=== PATIENT | female | born 1980 | race Caucasian/White ===

== ENCOUNTER → 2018-03-20 10:45 | Outpatient (REF) | payer MEDICAID, SELFPAY ==
--- NOTE | 2018-03-20 09:50 | PAPFT_PTH ---
PATIENT: Mallory Lazaro LOC: LAN U#:[id number] AGE/SX: 45/F ROOM: RE03/20/[address]: Joshua Alcantara RN : 1980 BED: DIS: SPEC #: [id number] RECD: 03/20/18 12:56 STATUS: NISHA RUIZ #: [id number] FAVIAN: 03/20/18 09:[address]: Joshua Alcantara DEPT: [facility] Cytology RECD BY: Anel Zepeda ENTERED: 03/20/18 12:56 SP TYPE: PAPFT OTHR DR: Monica Mcclellan MD, DC Tissues: 1 - CX/ENDOCX FOR PAP SMEARS Procedures: PAP THIN PREP/[facility] Screening HPV DNA PROBE Comments: [id number]
== END ==
LOC: LBN 10:45
PROVIDERS: PCP Family Medicine; Visit Provider Advanced Practice Midwife
DX: Z12.4 Encounter for screening for malignant neoplasm of cervix (principal); Z11.51 Encounter for screening for human papillomavirus (HPV)
CPT/HCPCS: 88142; 87624

== ENCOUNTER 2020-06-29 16:36 | Outpatient (REF) | payer BC, SELFPAY ==
[2020-07-10 11:28] LABS: Patient Race White; SARS-CoV-2 RNA Undetected (Undetected); SARS-CoV-2 Specimen Source Nasal
[2020-07-10 11:37] LABS: Method Summary See Comments
== END 2020-06-29 16:56 ==
LOC: LBN 16:36
PROVIDERS: PCP Family Medicine; Visit Provider Nurse Practitioner
DX: R11.0 Nausea (principal); R53.83 Other fatigue; R19.7 Diarrhea, unspecified; J02.9 Acute pharyngitis, unspecified
CPT/HCPCS: U0003

== ENCOUNTER 2023-06-04 03:56 | Outpatient (CLI) | payer MEDICAID, SELFPAY ==
[2023-06-04 09:02] LABS: HCT 39.6 % (36.0-46.0); HGB 13.6 g/dL (11.2-15.7); MCH 29.2 pg (27.0-33.0); MCHC 34.3 % (32.0-36.0); MCV 85 fL (80-95); MPV 8.8 fL (8.0-11.0); Platelet Count 432 10^3/uL (130-400); RBC 4.65 10^6/uL (3.93-5.22); RDW 11.5 % (11.7-14.6); RDW-SD 35.3 fL
[2023-06-04 10:06] LABS: ALT 27 U/L (14-59); AST 18 U/L (15-37); Albumin 3.9 g/dL (3.4-5.0); Alkaline Phosphatase 55 U/L (46-116); Anion Gap 7.5 mmol/L (3-11); BUN 9 mg/dL (7-18); Bilirubin, Total 0.4 mg/dL (0.2-1.0); CO2 26.5 mmol/L (21.0-32.0); CREATININE 0.7 mg/dL (0.55-1.02); Calcium 8.9 mg/dL (8.5-10.1); Calculated LDL 108 mg/dL (<100); Chloride 104 mmol/L (98-107); Cholesterol 173 mg/dL (<200); Estimated GFR 110.67 (mL/min/1.73m2); Glucose 102 mg/dL (74-106); HDL Cholesterol 51 mg/dL (40-60); Potassium 4.2 mmol/L (3.5-5.1); Sodium 138 mmol/L (136-145); Total Protein 7.3 g/dL (6.4-8.2); Triglyceride 70 mg/dL (<150)
== END 2023-06-04 03:57 | disposition home or self-care (01) ==
PROVIDERS: PCP Nurse Practitioner Family; Visit Provider Nurse Practitioner Family
DX: F32.A Depression, unspecified (principal); F41.9 Anxiety disorder, unspecified; Z00.00 Encounter for general adult medical examination without abnormal findings
CPT/HCPCS: 36415; 80053; 80061; 85027; 84443

== ENCOUNTER → 2023-10-07 02:01 | Outpatient (CLI) | payer MEDICAID, SELFPAY ==
--- NOTE | 2023-10-07 07:30 | DI.RAD_ITS ---
Exam(s) XR SHOULDER RT COMPLETE 2+V EXAM: XR SHOULDER RT COMPLETE 2+V CLINICAL HISTORY: right shoulder pain,m25.511. TECHNIQUE: 2D digital imaging was performed. COMPARISON: CR XR SHOULDER LT COMPLETE 2+V from 10/07/2023 FINDINGS: Five views. No evidence of fracture or dislocation or abnormal soft tissue calcifications. No degenerative noble es. Subacromial space exhibits normal height. There are 2 peripherally sclerotic small cystic findi ngs in the lateral half of the humeral head which are probably degenerative subarticular cysts. Ther e is no obvious degenerative change in the glenohumeral and AC joints. Bone density otherwise normal . IMPRESSION: Two small peripherally sclerotic cysts in the humeral head. DATA REPOSITORY: RADIATION DOSE DELIVERED:
--- NOTE | 2023-10-07 16:25 | DI.RAD_ITS ---
Exam(s) XR SHOULDER LT COMPLETE 2+V EXAM: XR SHOULDER LT COMPLETE 2+V h CLINICAL HISTORY: left shoulder pain,m25.512. TECHNIQUE: 2D digital imaging was performed. COMPARISON: No exams were available for comparison FINDINGS: Four views. No evidence of fracture or dislocation. Subacromial space unremarkable. No soft tissue calcificatio ns. No significant degenerative changes. AC joint appears unremarkable. Bone density normal. No o sseous lesions. IMPRESSION: No significant radiographic findings in the left shoulder. DATA REPOSITORY: RADIATION DOSE DELIVERED:
== END ==
PROVIDERS: PCP Nurse Practitioner Family; Visit Provider Nurse Practitioner Family
DX: M25.512 Pain in left shoulder (principal); M25.511 Pain in right shoulder
CPT/HCPCS: 73030

== ENCOUNTER 2024-03-01 16:13 | Outpatient (REF) | payer BC, SELFPAY ==
--- NOTE | 2024-03-01 15:40 | PAPFT_PTH ---
PATIENT: Mallory Lazaro LOC: LAN U#:[id number] AGE/SX: 43/F ROOM: RE03/01/[address]: Bety Harris NP : 1980 BED: DIS: 03/01/2024 SPEC #: [id number] RECD: 03/01/24 18:35 STATUS: NISHA SARA #: [id number] FAVIAN: 03/01/24 15:[address]: Bety Harris NP DEPT: [facility] Cytology RECD BY: Anel Zepeda ENTERED: 03/01/24 18:36 SP TYPE: PAPFT OTHR DR: Casie Martinez NP Tissues: 1 - CX/ENDOCX FOR PAP SMEARS Procedures: PAP THIN PREP/U[facility] Screening HPV DNA PROBE Comments: [id number] (HPV 16 & 18/45)
== END 2024-03-01 16:14 | disposition home or self-care (01) ==
LOC: LBN 16:13
PROVIDERS: PCP Nurse Practitioner Family; Visit Provider Nurse Practitioner Women's Health
DX: Z01.419 Encounter for gynecological examination (general) (routine) without abnormal findings (principal); Z12.4 Encounter for screening for malignant neoplasm of cervix; Z12.31 Encounter for screening mammogram for malignant neoplasm of breast
CPT/HCPCS: 88142; 87624

== ENCOUNTER → 2024-03-03 01:05 | Outpatient (CLI) | payer BC, SELFPAY ==
--- NOTE | 2024-03-03 15:45 | DI.MAMMO_ITS ---
Exam(s) MAMMO SCREENING EXAM: MAMMO SCREENING CLINICAL HISTORY: screening TECHNIQUE: Bilateral full field digital CC and MLO mammographic images were obtained with 3D tomosyn thesis and utilizing computer aided detection (CAD). COMPARISON: This is a baseline examination. FINDINGS: Masses/Architectural Distortion: None seen. Microcalcifications: No suspicious pleomorphic-type are seen. Skin Thickening/Nipple Retraction: None. IMPRESSION: 1. No evidence for malignancy is seen at this time. 2. Unless there is more urgent need, screening mammography is recommended, as per [employer] guidelines. BI-RADS Category 1 - Negative Breast Density - Category C - Heterogeneously dense Breast density category C or D implies that the patient has dense breast tissue. Dense breast tissue is very common and is not abnormal but dense breast tissue can make it harder to find cancer on a ma mmogram. Also, dense breast tissue may increase their breast cancer risk. This information about the result of the mammogram report was provided to the patient to raise their awareness. Use this report when you speak with the patient about their risks for breast cancer, which includes their family hist ory. At that time, you may recommend for more screening tests (Ultrasound or MRI) as they might be us eful based on their risk. A negative radiographic report should not delay biopsy if a dominant or clinically suspicious mass is present. Up to ten percent of cancers are not identified on mammography. A negative report may reinforce clinical impression. Adenosis and dense breasts may obscure an underlying neoplasm. False positive reports average 6 to 10%. Patient will receive a letter notifying them of these results.
== END ==
PROVIDERS: PCP Nurse Practitioner Family; Visit Provider Nurse Practitioner Women's Health
DX: Z12.39 Encounter for other screening for malignant neoplasm of breast (principal); Z12.31 Encounter for screening mammogram for malignant neoplasm of breast; R92.333 Mammographic heterogeneous density, bilateral breasts
CPT/HCPCS: 77063; 77067